=== PATIENT | female | born 1960 | race Caucasian/White ===

== ENCOUNTER → 2016-05-15 | Outpatient (CLI) | payer BC | END | disposition home or self-care (01) | LOC: CFH 12:42 | PROVIDERS: ATTEND Internal Medicine | DX: N63 Unspecified lump in breast (principal) | CPT/HCPCS: 76641; G0206 ==

== ENCOUNTER → 2016-10-03 | Outpatient (CLI) | payer BC | END | disposition home or self-care (01) | LOC: CFH 09:59 | PROVIDERS: ATTEND Internal Medicine | DX: K76.0 Fatty (change of) liver, not elsewhere classified (principal); R07.9 Chest pain, unspecified; E03.9 Hypothyroidism, unspecified; F41.1 Generalized anxiety disorder; E78.1 Pure hyperglyceridemia; K21.9 Gastro-esophageal reflux disease without esophagitis; M19.90 Unspecified osteoarthritis, unspecified site | CPT/HCPCS: 71020; 76700 ==

== ENCOUNTER → 2016-10-04 | Outpatient (CLI) | payer BC ==
[~2016-10-04] MED LIST: REGADENOSON 0.4 MG/5 ML SYRINGE ONE
== END | disposition home or self-care (01) ==
LOC: CFH 12:43
PROVIDERS: ATTEND Internal Medicine
DX: R07.9 Chest pain, unspecified (principal); E03.9 Hypothyroidism, unspecified; K21.9 Gastro-esophageal reflux disease without esophagitis; E78.5 Hyperlipidemia, unspecified
CPT/HCPCS: 78452; 93017; A9502; J2785

== ENCOUNTER → 2017-10-06 | Outpatient (CLI) | payer BC | END | disposition home or self-care (01) | LOC: CFH 07:02 | PROVIDERS: ATTEND Internal Medicine Cardiovascular Disease | DX: I34.0 Nonrheumatic mitral (valve) insufficiency (principal); E78.5 Hyperlipidemia, unspecified | CPT/HCPCS: 93306 ==

== ENCOUNTER → 2017-10-09 | Outpatient (CLI) | payer BC | END | disposition home or self-care (01) | LOC: CFH 12:02 | PROVIDERS: ATTEND Internal Medicine Cardiovascular Disease | DX: I10 Essential (primary) hypertension (principal); I34.1 Nonrheumatic mitral (valve) prolapse | CPT/HCPCS: 78452; 93017; A9502; J2785 ==

== ENCOUNTER 2020-08-28 14:58 | Observation (INO) | payer BC ==
[~2020-08-28] VITALS: Ht 154.9 cm; Wt 52.7 kg
--- NOTE | 2020-08-28 15:12 | NUR ---
PT BIB EMS FOR DIZZINESS. PT WAS AT HER PCP GETTING A ROUTINE LAB DRAW. WHILE SHE WAS WAITING IN THE WAITING ROOM SHE SUDDENLY BECAME DIZZY AND SWEATY. PT DENIES LOC. WHILE AT PCP OFFICE AND EKG WAS PERFORMED AND 911 WAS CALLED. PT RECIEVED 2 SL NITROS AND 324 ASPIRIN. PT DENIES CP OR EVER HAVING CP. PT CURRENTLY IS NOT CO OF DIZZINESS. PT RESTING IN [facility]. EKG COMPLETE. CONNECTED TO MONITORING EQUIPMENT
[2020-08-28] MEDS ORDERED: SODIUM CHLORIDE FLUSH 10ML SYR IVF ONE (15:30)
[2020-08-28] MEDS ORDERED: ASPIRIN 81 MG TABLET CHEW PO ONE (15:30)
[2020-08-28 15:41] LABS: BASOPHILS % (AUTO) 1 % (0-1); EOSINOPHILS % (AUTO) 1 % (1-7); LYMPHOCYTES % (AUTO) 35 % (22-44); MEAN CORPUSCULAR HEMOGLOBIN 31.2 pg (27.0-34.8); MEAN CORPUSCULAR HGB CONC 34.3 g/dL (32.4-35.8); MEAN PLATELET VOLUME 8.6 fL (7.4-10.4); MONOCYTES % (AUTO) 5 % (2-9); NEUTROPHILS % (AUTO) 59 % (42-75); PLATELET COUNT 265 x10^3/uL (130-400); RED BLOOD COUNT 4.74 x10^6/uL (3.82-5.3); RED CELL DISTRIBUTION WIDTH 13.8 % (9.6-15.2)
[2020-08-28 15:56] LABS: ALANINE AMINOTRANSFERASE 36 U/L (12-78); ALBUMIN 3.8 g/dL (3.4-5.0); ANION GAP 4 mmol/L (5-15); CALCIUM 9.6 mg/dL (8.5-10.1); CHLORIDE 113 mmol/L (98-107); CREATININE 0.64 mg/dL (0.55-1.02)
[2020-08-28 16:00] LABS: ALKALINE PHOSPHATASE 68 U/L (45-117); BILIRUBIN,TOTAL 0.4 mg/dL (0.2-1.0); TOTAL PROTEIN 7.7 g/dL (6.4-8.2); TROPONIN I < 0.015 ng/mL (0.000-0.045)
--- NOTE | 2020-08-28 16:04 | NUR ---
PT EDUCATED ON PLAN OF CARE. TBADM. PT AMBULATED WITHOUT ASSITANCE TO BATHROOM.
[2020-08-28] MEDS ORDERED: ACETAMINOPHEN 325 MG TABLET PO PRN (18:30)
[2020-08-28] MEDS ORDERED: ONDANSETRON ODT 4 MG PO PRN (18:30)
[2020-08-28] MEDS ORDERED: POLYETHYLENE GLYCOL 17 GM PACKET PO PRN (18:30)
[2020-08-28] MEDS ORDERED: NITROGLYCERIN 0.4 MG BOTTLE (25 TABS) SL PRN (18:30)
[2020-08-28] MEDS ORDERED: morphine SULFATE 10 MG/ML, 1ML IVPush PRN (18:30)
[2020-08-28] MEDS ORDERED: BISACODYL 10 MG SUPP PR PRN (18:30)
--- NOTE | 2020-08-28 18:47 | NUR ---
REPORT TO YANA TODD.
[2020-08-28 19:10] VITALS: BP 157/76
[2020-08-28] MEDS ORDERED: ALEN70TA3 PO (20:53)
[2020-08-28] MEDS ORDERED: AMIT10TA PO (20:53)
[2020-08-28] MEDS ORDERED: ERGO500017 PO (20:53)
[2020-08-28] MEDS ORDERED: LEVO50CA4 PO (20:53)
[2020-08-28] MEDS: SODIUM CHLORIDE FLUSH 10ML SYR IVF SCH (21:02)
[2020-08-28] MEDS: HEPARIN 5,000 UNITS/ML, 1ML SQ SCH (21:02)
[2020-08-28 21:42] LABS: TROPONIN I < 0.015 ng/mL (0.000-0.045)
[2020-08-28] MEDS ORDERED: AMITRIPTYLINE 10 MG TABLET PO ONE (23:00)
[2020-08-29 01:23] VITALS: BP 155/79
[2020-08-29 04:07] LABS: CHOLESTEROL, TOTAL 174 mg/dL (140-239); TRIGLYCERIDES 125 mg/dL (50-200); VLDL CHOLESTEROL 25 mg/dL (0-25)
[2020-08-29 04:10] LABS: CHOL/HDL RATIO 3.1; HDL CHOL % 33 % (28-40); HDL CHOLESTEROL (DIRECT) 57 mg/dL (40-60); LDL CHOLESTEROL,CALCULATED 92 mg/dL (54-169); LDL/HDL RATIO 1.6 (0.5-3.0); TROPONIN I < 0.015 ng/mL (0.000-0.045)
[2020-08-29] MEDS: HEPARIN 5,000 UNITS/ML, 1ML SQ SCH ×2 (05:46→13:58)
[2020-08-29] MEDS ORDERED: ASPIRIN 81 MG TABLET EC PO SCH (06:00)
[2020-08-29 06:25] VITALS: BP 117/62
[2020-08-29] MEDS: SODIUM CHLORIDE FLUSH 10ML SYR IVF SCH (08:12)
[2020-08-29] MEDS ORDERED: SENNA/DOCUSATE TABLET PO SCH (09:00)
[2020-08-29] MEDS ORDERED: REGADENOSON 0.4 MG/5 ML SYRINGE ONE (09:15)
[2020-08-29] MEDS ORDERED: LEVO25TA2 PO (10:55)
[2020-08-29] MEDS ORDERED: SIMV20TA19 PO (10:55)
[2020-08-29 11:44] LABS: FREE T4 (FREE THYROXINE) 0.91 ng/dL (0.76-1.46)
[2020-08-29 14:00] VITALS: BP 121/64
[2020-08-29] MEDS ORDERED: ASPI81TA45 PO (16:06)
== END 2020-08-29 17:50 | disposition home or self-care (01) ==
LOC: ED 17:55 → INTOOBSV 18:00 → EDIP 18:00 → 5SO 19:05
PROVIDERS: ADMIT Internal Medicine; ATTEND Internal Medicine
DX: R07.89 Other chest pain (principal); R00.1 Bradycardia, unspecified; R42 Dizziness and giddiness; I10 Essential (primary) hypertension; I51.89 Other ill-defined heart diseases; E78.5 Hyperlipidemia, unspecified; M19.041 Primary osteoarthritis, right hand; M19.042 Primary osteoarthritis, left hand; E03.9 Hypothyroidism, unspecified; R94.31 Abnormal electrocardiogram [ECG] [EKG]; R00.2 Palpitations; R61 Generalized hyperhidrosis; Z90.710 Acquired absence of both cervix and uterus; Z86.79 Personal history of other diseases of the circulatory system
CPT/HCPCS: 36415; 71045; 78452; 80053; 80061; 83690; 84439; 84443; 84481; 84484; 85025; 93005; 93017; 93306; 96372; 99285; A9502; G0378; J1644; J2785